=== PATIENT | female | born 1990 | race African-American/Black ===

== ENCOUNTER 2016-07-21 20:23 | Emergency (ER) | payer SELFPAY ==
[~2016-07-21] VITALS: Ht 147.3 cm; Wt 59.1 kg
[~2016-07-21 20:23] MED LIST: CHLO.12%30 SSP; IBUP600T26 PO; NOVONP2 SQ; NOVORP2 SQ; PENI500T PO
[2016-07-21 20:26] VITALS: BP 155/88; PULSE 99; RESP 16; TEMP 98.3; O2SAT 100
== END 2016-07-22 01:20 | disposition left against medical advice (07) ==
LOC: NED 20:23
DX: R10.9 Unspecified abdominal pain (principal); Z53.21 Procedure and treatment not carried out due to patient leaving prior to being seen by health care provider
CPT/HCPCS: 99281

== ENCOUNTER 2016-07-22 09:32 | Emergency (ER) | payer OTHER ==
[~2016-07-22] VITALS: Ht 147.3 cm; Wt 65.0 kg
[2016-07-22 09:35] VITALS: BP 111/73; PULSE 102; RESP 19; TEMP 98.5; O2SAT 99
--- NOTE | 2016-07-22 10:42 | PD ---
HPI Chief Complaint: Bleeding Time Seen by Provider: 10:39 Travel History International Travel<30 days: No Contact w/Intl Traveler<30days: No Traveled to known affect area: No History of Present Illness HPI 26-year-old female with no significant past medical issues except for diabetes, presents to the ER today because she states that she has been having crampy pelvic pains and passing large blood clots. She states that she has history of painful menses and this is her usual type her menses. She states that she was concerned because she was passing these large blood clots. She denies any nausea, vomiting, fevers, or any other symptoms. She currently rates her pain at a 7 out of 10. She does not know any exacerbating or alleviating factors. Modifying Factors: None Associated Signs & Symptoms: Pelvic pains, passing blood clots Risk Factors: History of dysmenorrhea PFSH Past Medical History Asthma: Yes Autoimmune Disease: No Blood Disorders: No Anxiety: No Depression: No Cancer: No Cardiovascular Problems: No Diabetes: Yes Patient Takes Glucophage: No Diminished Hearing: No Genitourinary: No Headaches: Yes Immune Disorder: No Musculoskeletal: No Neurologic: No Psychiatric: No Reproductive: No Respiratory: No Immunizations Current: Yes Migraines: Yes Sickle Cell Disease: No ?: Not LMP: 07/20/16 Menopausal: No : 0 Past Surgical History Surgical History: No Previous Surgery Other Surgery: No Social History Alcohol Use: No Tobacco Use: No Substance Use: No Allergies-Medications (Allergen,Severity, Reaction): Coded Allergies: No Known Allergies (Verified , 07/22/16) Reported Meds & Prescriptions Reported Meds & Active Scripts Active No Active Prescriptions or Reported Medications Review of Systems Except as stated in HPI: all other systems reviewed are Neg Physical Exam Narrative GENERAL: Well-nourished, well-developed young -[place] female patient in no acute distress. SKIN: Warm and dry. HEAD: Normocephalic. EYES: No scleral icterus. No injection or drainage. NECK: Supple, trachea midline. CARDIOVASCULAR: Regular rate and rhythm without murmurs, gallops, or rubs. RESPIRATORY: Breath sounds equal bilaterally. No accessory muscle use. GASTROINTESTINAL: Abdomen soft, non-tender, nondistended. Benign. GENITOURINARY: Normal external genitalia without lesions or erythema. Vaginal vault with blood in no significant drainage. Cervical os was closed without drainage. No cervical motion tenderness. Uterus nontender. Bilateral adnexa nontender without masses. MUSCULOSKELETAL: No cyanosis, or edema. BACK: Nontender without obvious deformity. No CVA tenderness. Data Data Last Documented VS Vital Signs Date Time Temp Pulse Resp B/P Pulse Ox O2 Delivery O2 Flow Rate FiO2 07/22/16 10:53 99 Room Air 07/22/16 09:35 98.5 102 19 111/73 Orders Ed Urine Pregnancytest Poc (07/22/16 10:25) Complete Blood Count With Diff (07/22/16 10:39) Urinalysis - C+S If Indicated (07/22/16 10:39) Iv Access Insert/Monitor (07/22/16 10:39) Ecg Monitoring (07/22/16 10:39) Oximetry (07/22/16 10:39) Sodium Chloride 0.9% Flush (Ns Flush) (07/22/16 10:45) Beta Hcg (Quant/Titer) (07/22/16 10:55) Type And Screen (07/22/16 10:55) Labs Laboratory Tests Test 07/22/16 07/22/16 10:40 10:50 White Blood Count 8.4 TH/MM3 Red Blood Count 5.57 MIL/MM3 Hemoglobin 15.6 GM/DL Hematocrit 45.9 % Mean Corpuscular Volume 82.4 FL Mean Corpuscular Hemoglobin 28.0 PG Mean Corpuscular Hemoglobin 34.0 % Concent Red Cell Distribution Width 13.3 % Platelet Count 409 TH/MM3 Mean Platelet Volume 8.2 FL Neutrophils (%) (Auto) 57.2 % Lymphocytes (%) (Auto) 34.6 % Monocytes (%) (Auto) 6.8 % Eosinophils (%) (Auto) 0.9 % Basophils (%) (Auto) 0.5 % Neutrophils # (Auto) 4.8 TH/MM3 Lymphocytes # (Auto) 2.9 TH/MM3 Monocytes # (Auto) 0.6 TH/MM3 Eosinophils # (Auto) 0.1 TH/MM3 Basophils # (Auto) 0.0 TH/MM3 CBC Comment DIFF FINAL Differential Comment Human Chorionic Gonadotropin, 216 MIU/ML Quant Blood Type B POSITIVE Antibody Screen NEGATIVE Urine Color LIGHT-YELLOW Urine Turbidity CLEAR Urine pH 6.5 Urine Specific [place] 1.033 Urine Protein NEG mg/dL Urine Glucose (UA) 1000 mg/dL Urine Ketones 10 mg/dL Urine Occult Blood TRACE Urine Nitrite NEG Urine Bilirubin NEG Urine Urobilinogen LESS THAN 2.0 MG/DL Urine Leukocyte Esterase NEG Urine RBC 1 /hpf Urine WBC LESS THAN 1 /hpf Urine Squamous Epithelial 4 /hpf Cells Urine Bacteria RARE /hpf Microscopic Urinalysis Comment CULT NOT INDICATED MDM Medical Decision Making Medical Screen Exam Complete: Yes Emergency Medical Condition: Yes Medical Record Reviewed: Yes Interpretation(s) Laboratory Tests Test 07/22/16 07/22/16 10:40 10:50 Red Blood Count 5.57 MIL/MM3 (4.00-5.30) Hemoglobin 15.6 GM/DL (11.6-15.3) Human Chorionic Gonadotropin, 216 MIU/ML Quant (0-5) Urine Glucose (UA) 1000 mg/dL (NEG) Urine Ketones 10 mg/dL (NEG) Urine Occult Blood TRACE (NEG) Urine Bacteria RARE /hpf (NONE) Differential Diagnosis Passing large blood clots, pelvic paindysmenorrhea versus UTI versus threatened AB/ectopic Narrative Course Patient is Rh+. Her hCG is 200. At this point, it appears that she may have had a threatened AB. My plan would be to have her follow-up with [facility] in 2 days for reevaluation of hCG. Return for any worsening in bleeding, pain, and as needed. Pelvic rest. The plan was discussed with her and she states understanding. Diagnosis Primary Impression: THREATENED Scripts No Active Prescriptions or Reported Meds Disposition: 01 DISCHARGE HOME Condition: Stable SoonCamacho [email or web address] MD Jul 22, 2016 10:42
[2016-07-22] MEDS ORDERED: SODIUM CHLORIDE 0.9% FLUSH 5 ML FLUSH IVF PRN (10:45)
[2016-07-22 10:53] VITALS: O2SAT 99
[2016-07-22 11:10] LABS: AUTOMATED NEUTROPHIL # 4.8 TH/MM3 (1.8-7.7); BASOPHIL % 0.5 % (0.0-2.0); EOSINOPHIL # 0.1 TH/MM3 (0-0.4); EOSINOPHIL % 0.9 % (0.0-4.0); HEMATOCRIT 45.9 % (35.0-46.0); HEMO FLAGS DIFF FINAL; LYMPH % 34.6 % (9.0-44.0); LYMPHOCYTE # 2.9 TH/MM3 (1.0-4.8); MEAN CELL VOLUME 82.4 FL (80.0-100.0); MONO % 6.8 % (0.0-8.0); NEUT % 57.2 % (16.0-70.0); PLATELET COUNT 409 TH/MM3 (150-450); RED BLOOD COUNT 5.57 MIL/MM3 (4.00-5.30); RED CELL DISTRIBUTION WIDTH 13.3 % (11.6-17.2); WHITE BLOOD COUNT 8.4 TH/MM3 (4.0-11.0)
[2016-07-22 11:17] LABS: BACTERIA, URINE RARE /hpf; BLOOD, URINE TRACE (NEG); COMMENT (UR) CULT NOT INDICATED; CULTURE IF INDICATED CULT NOT INDICATED; GLUCOSE,URINE 1000 mg/dL (NEG); KETONE, URINE 10 mg/dL (NEG); NITRITE,URINE NEG (NEG); PH, URINE 6.5 (5.0-8.5); SQUAMOUS EPITHELIAL CELL URINE 4 /hpf (0-5); URINE COLOR LIGHT-YELLOW (YELLW/STRAW)
[2016-07-22 11:37] LABS: BETA HCG QUANT 216 MIU/ML (0-5)
== END 2016-07-22 12:10 | disposition home or self-care (01) ==
LOC: NEPC 09:32
DX: O20.0 Threatened abortion (principal); N94.6 Dysmenorrhea, unspecified; J45.909 Unspecified asthma, uncomplicated; E11.9 Type 2 diabetes mellitus without complications
CPT/HCPCS: 81001; 84702; 84703; 85025; 86850; 86900; 86901; 99284

== ENCOUNTER 2017-06-22 20:34 | Emergency (ER) | payer OTHER ==
[2017-06-22 20:35] VITALS: BP 145/81; PULSE 102; RESP 16; TEMP 98.8; O2SAT 98
--- NOTE | 2017-06-23 20:04 | PD ---
HPI Chief Complaint: Oral / Dental Pain or Problem Time Seen by Provider: 21:05 Travel History International Travel<30 days: No Contact w/Intl Traveler<30days: No Traveled to known affect area: No History of Present Illness HPI Pt is a 27-year-old female presenting to the emergency department for evaluation of a right upper toothache. Patient states that this started a few days ago on the onset was gradual. She reports that there is a hole in her tooth. It is causing her to headache. She denies any fever, chills, nausea or vomiting, dysphagia or drooling. She has not attempted to contact a dentist. PFSH Past Medical History Asthma: Yes Autoimmune Disease: No Blood Disorders: No Anxiety: No Depression: No Cancer: No Cardiovascular Problems: No Diabetes: Yes Diminished Hearing: No Genitourinary: No Headaches: Yes Immune Disorder: No Musculoskeletal: No Neurologic: No Psychiatric: No Reproductive: No Respiratory: No Immunizations Current: Yes Migraines: Yes Sickle Cell Disease: No ?: Unknown LMP: last month Menopausal: No : 0 Past Surgical History Other Surgery: No Social History Alcohol Use: No Tobacco Use: No Substance Use: No Allergies-Medications (Allergen,Severity, Reaction): Coded Allergies: No Known Allergies (Verified , 07/22/16) Reported Meds & Prescriptions Reported Meds & Active Scripts Active No Active Prescriptions or Reported Medications Review of Systems Except as stated in HPI: all other systems reviewed are Neg HENT: Positive: Headaches, Dental Difficulties Physical Exam Narrative GENERAL: Well-developed, well-nourished, alert female. Presenting in no acute distress. SKIN: Warm and dry. HEAD: Normocephalic. EYES: No scleral icterus. No injection or drainage. NECK: Supple, trachea midline. No JVD or lymphadenopathy. CARDIOVASCULAR: Regular rate RESPIRATORY: No accessory muscle use. Data Data Last Documented VS Vital Signs Date Time Temp Pulse Resp B/P (MAP) Pulse Ox O2 Delivery O2 Flow Rate FiO2 06/22/17 20:35 98.8 102 16 145/81 (102) 98 Room Air MDM Medical Decision Making Medical Screen Exam Complete: Yes Emergency Medical Condition: Yes Interpretation(s) Vital Signs Date Time Temp Pulse Resp B/P (MAP) Pulse Ox O2 Delivery O2 Flow Rate FiO2 06/22/17 20:35 98.8 102 16 145/81 (102) 98 Room Air Differential Diagnosis Dentalgia versus dental abscess versus dental caries versus other Narrative Course Patient is a 27-year-old female that presented to emergency department for evaluation of dental pain that started a few days ago getting progressively worse. Patient's vital signs are stable, she is mildly tachycardic on arrival. Patient is awaiting bed placement. Patient presented to triage desk stating that she wanted to go home and did not want to wait. He was encouraged to stay and be evaluated. She further declined. AMA: The risks of leaving against medical advice without further evaluation treatment were discussed with the patient. These risks include cardiac dysfunction, cardiac dysrhythmia, possible heart attack, possible stroke or . The patient indicated understanding of these risks and appeared to have the capacity to make this decision. Diagnosis Primary Impression: Left against medical advice Scripts No Active Prescriptions or Reported Meds Disposition: 07 AGAINST MEDICAL ADVICE Jessica Edwards Jun 23, 2017 20:04
== END 2017-06-23 00:27 | disposition left against medical advice (07) ==
LOC: NED 20:34
DX: K08.89 Other specified disorders of teeth and supporting structures (principal); R00.0 Tachycardia, unspecified; R51 Headache; J45.909 Unspecified asthma, uncomplicated; E11.9 Type 2 diabetes mellitus without complications
CPT/HCPCS: 99281